=== PATIENT | female | born 1950 | race Caucasian/White ===

== ENCOUNTER 2017-05-19 23:51 | Emergency (ER) | payer MEDICARE, OTHER ==
[~2017-05-19] VITALS: Ht 162.6 cm; Wt 68.0 kg
--- NOTE | 2017-05-20 05:38 | NUR ---
DOWNTIME PROCEDURE: Please refer to paper charting.
== END 2017-05-20 05:39 | disposition home or self-care (01) ==
LOC: ER 05-20 00:09
DX: S91.114A Laceration without foreign body of right lesser toe(s) without damage to nail, initial encounter (principal); E03.9 Hypothyroidism, unspecified; W22.8XXA Striking against or struck by other objects, initial encounter; Y93.89 Activity, other specified; Y92.9 Unspecified place or not applicable; Y99.9 Unspecified external cause status
CPT/HCPCS: 12001; 90471; 90715; 99283; A4217; A4663; J3490